=== PATIENT | male | born 1965 | race Caucasian/White ===

== ENCOUNTER 2016-07-20 00:51 | Emergency (ER) | payer BC | END 2016-07-20 01:50 | disposition home or self-care (01) | LOC: D.ER 00:51 | DX: F41.9 Anxiety disorder, unspecified (principal); I10 Essential (primary) hypertension ==

== ENCOUNTER 2016-10-14 15:51 | Emergency (ER) | payer SELFPAY ==
[2016-10-14 16:22] LABS: BASOPHILS 0.1 % (0-2); EOSINOPHILS 0 % (0-7); HEMATOCRIT 39.5 % (42.0-54.0); HEMOGLOBIN 13.5 g/dL (13.5-17.5); IMMATURE GRANULOCYTES 0.2 % (0-5); LYMPHOCYTES 5.1 % (15-50); MCH 30.5 pg (26.0-34.0); MCHC 34.2 g/dL (31.0-37.0); MCV 89.4 fL (80.0-100.0); MEAN PLATELET VOLUME 9.8 fL (7.4-10.4); MONOCYTES 4.4 % (2-11); NEUTROPHILS 90.2 % (40-80); PLATELET COUNT 170 10x3/uL (130-400); RBC 4.42 10x6/uL (4.20-6.10); RDW 13.4 % (11.5-14.5); WBC 15.3 10x3/uL (4.8-10.8)
[2016-10-14 16:41] LABS: ALBUMIN 3.2 g/dL (3.4-5.0); ANION GAP 15.7 mmol/L (8-16); BILIRUBIN - TOTAL 0.23 mg/dL (0.2-1.3); CARBON DIOXIDE 23.2 mmol/L (21.0-32.0); CREATININE - SERUM 1.3 mg/dL (0.6-1.3); POTASSIUM - SERUM 3.9 mmol/L (3.5-5.1); PROTEIN - SERUM 6.4 g/dL (6.4-8.2)
== END 2016-10-14 18:40 | disposition home or self-care (01) ==
LOC: D.ER 15:51
PROVIDERS: Emergency Medicine
DX: F41.9 Anxiety disorder, unspecified (principal); R55 Syncope and collapse; Z91.14 Patient's other noncompliance with medication regimen; I10 Essential (primary) hypertension; F17.200 Nicotine dependence, unspecified, uncomplicated

== ENCOUNTER 2017-05-07 22:28 | Emergency (ER) | payer SELFPAY ==
[2017-05-17 18:02] VITALS: BMI 32.0
== END 2017-05-07 23:51 | disposition home or self-care (01) ==
LOC: D.ER 22:28
DX: K02.9 Dental caries, unspecified (principal); K08.89 Other specified disorders of teeth and supporting structures; I10 Essential (primary) hypertension

== ENCOUNTER 2017-05-15 20:24 | Emergency (ER) | payer SELFPAY ==
[2017-05-15 21:18] LABS: BASOPHILS 0.1 % (0-2); EOSINOPHILS 0 % (0-7); HEMATOCRIT 44.4 % (42.0-54.0); HEMOGLOBIN 15.1 g/dL (13.5-17.5); IMMATURE GRANULOCYTES 0.2 % (0-5); LYMPHOCYTES 11.7 % (15-50); MCH 29.8 pg (26.0-34.0); MCV 87.7 fL (80.0-100.0); MEAN PLATELET VOLUME 9.7 fL (7.4-10.4); MONOCYTES 11.3 % (2-11); NEUTROPHILS 76.7 % (40-80); RBC 5.06 10x6/uL (4.20-6.10); RDW 15.3 % (11.5-14.5); WBC 9.1 10x3/uL (4.8-10.8)
[2017-05-15 21:21] LABS: PLATELET COUNT 114 10x3/uL (130-400)
[2017-05-15 21:35] LABS: ALBUMIN 3.2 g/dL (3.4-5.0); ALKALINE PHOSPHATASE 83 U/L (46-116); ALT (SGPT) 26 U/L (10-68); BILIRUBIN - TOTAL 0.45 mg/dL (0.2-1.3); CALC OSMOLALITY 284 mosm/kg (275-300); CALCIUM 7.8 mg/dL (8.5-10.1); CARBON DIOXIDE 23.9 mmol/L (21.0-32.0); CHLORIDE - SERUM 107 mmol/L (98-107); POTASSIUM - SERUM 3.8 mmol/L (3.5-5.1); PROTEIN - SERUM 6.6 g/dL (6.4-8.2); SODIUM 142 mmol/L (136-145); UREA NITROGEN 18 mg/dL (7-18); eGFR NON AFRICAN AMERICAN 83 mL/min (90-120)
[2017-05-15 21:40] LABS: GLUCOSE 98 mg/dL (74-106)
[2017-05-17 18:02] VITALS: BMI 32.0
== END 2017-05-15 23:11 | disposition home or self-care (01) ==
LOC: D.ER 20:24
PROVIDERS: Physician Assistant Medical
DX: K08.89 Other specified disorders of teeth and supporting structures (principal); I10 Essential (primary) hypertension

== ENCOUNTER 2017-05-17 11:50 | Inpatient (IN) | payer SELFPAY ==
[~2017-05-17] VITALS: Ht 190.5 cm; Wt 115.8 kg
[2017-05-17 14:03] LABS: BASOPHILS 0.3 % (0-2); EOSINOPHILS 0.3 % (0-7); HEMATOCRIT 47.2 % (42.0-54.0); IMMATURE GRANULOCYTES 0.3 % (0-5); LYMPHOCYTES 16.2 % (15-50); MCH 29.7 pg (26.0-34.0); MCHC 33.9 g/dL (31.0-37.0); MCV 87.7 fL (80.0-100.0); MEAN PLATELET VOLUME 9.3 fL (7.4-10.4); NEUTROPHILS 74.9 % (40-80); PLATELET COUNT 97 10x3/uL (130-400); RBC 5.38 10x6/uL (4.20-6.10); RDW 14.9 % (11.5-14.5)
[2017-05-17 14:07] LABS: WBC 6.7 10x3/uL (4.8-10.8)
[2017-05-17 14:25] LABS: PLATELET ESTIMATE DECREASED
[2017-05-17 17:34] LABS: CALC OSMOLALITY 283 mosm/kg (275-300); CALCIUM 8.3 mg/dL (8.5-10.1); CARBON DIOXIDE 27.2 mmol/L (21.0-32.0); CHLORIDE - SERUM 106 mmol/L (98-107); CREATININE - SERUM 0.9 mg/dL (0.6-1.3); GLUCOSE 94 mg/dL (74-106); POTASSIUM - SERUM 3.7 mmol/L (3.5-5.1); SODIUM 142 mmol/L (136-145); UREA NITROGEN 15 mg/dL (7-18); eGFR NON AFRICAN AMERICAN > 90 mL/min (90-120)
[2017-05-17 18:02] VITALS: BP 154/92; Ht 190.5 cm; Wt 115.8 kg
[2017-05-17] MEDS ORDERED: METOPROLOL TART25 MG PO (18:15)
[2017-05-17] MEDS ORDERED: FLOMAX0.4 MG PO (18:15)
[2017-05-17] MEDS ORDERED: CARDIZEM CD120 MG PO (18:41)
[2017-05-17 20:00] VITALS: BP 170/77
[2017-05-18 00:49] VITALS: BP 171/98
[2017-05-18 06:00] LABS: BASOPHILS 0.2 % (0-2); HEMOGLOBIN 15.5 g/dL (13.5-17.5); IMMATURE GRANULOCYTES 0.3 % (0-5); LYMPHOCYTES 21.1 % (15-50); MCH 29.2 pg (26.0-34.0); MCHC 33.7 g/dL (31.0-37.0); MCV 86.8 fL (80.0-100.0); MEAN PLATELET VOLUME 9.2 fL (7.4-10.4); MONOCYTES 9.5 % (2-11); NEUTROPHILS 67.9 % (40-80); PLATELET COUNT 112 10x3/uL (130-400); RDW 14.7 % (11.5-14.5); WBC 5.8 10x3/uL (4.8-10.8)
[2017-05-18 06:23] LABS: CALC OSMOLALITY 283 mosm/kg (275-300); CALCIUM 8.3 mg/dL (8.5-10.1); CHLORIDE - SERUM 106 mmol/L (98-107); GLUCOSE 98 mg/dL (74-106); SODIUM 142 mmol/L (136-145); UREA NITROGEN 15 mg/dL (7-18); eGFR NON AFRICAN AMERICAN 83 mL/min (90-120)
[2017-05-18 06:46] VITALS: BP 155/93
[2017-05-18 08:51] VITALS: BP 167/101
[2017-05-18 12:29] VITALS: BP 166/93
[2017-05-18 17:28] VITALS: BP 150/84
[2017-05-18 20:00] VITALS: BP 153/91
[2017-05-19] VITALS: BP 144/96
[2017-05-19 04:00] VITALS: BP 148/90
[2017-05-19 08:00] VITALS: BP 163/86
[2017-05-19 12:00] VITALS: BP 135/83
[2017-05-19 17:09] VITALS: BP 153/99
[2017-05-19 21:01] VITALS: BP 177/95
[2017-05-20 06:22] VITALS: BP 150/89
[2017-05-20 08:51] VITALS: BP 158/84
[2017-05-20 11:40] VITALS: BP 147/77
[2017-05-20] MEDS ORDERED: LEVAQUIN750 MG PO (13:18)
[2017-05-20] MEDS ORDERED: MEDROL DOSE PACK4 MG PO (13:19)
[2017-05-20] MEDS ORDERED: VENTOLIN HFA18 GM INH (13:20)
== END 2017-05-20 19:15 | disposition home or self-care (01) | DRG 195 ==
LOC: D.ER 11:50 → D.M2 16:57
PROVIDERS: Family Medicine; Physician Assistant
DX: J18.9 Pneumonia, unspecified organism (principal); I10 Essential (primary) hypertension; Z87.891 Personal history of nicotine dependence; R21 Rash and other nonspecific skin eruption

== ENCOUNTER 2017-07-21 08:12 | Emergency (ER) | payer SELFPAY ==
[~2017-07-21] VITALS: Ht 190.5 cm; Wt 122.7 kg
[~2017-07-21 08:12] MED LIST: CARDIZEM CD120 MG PO; FLOMAX0.4 MG PO; LEVAQUIN750 MG PO; MEDROL DOSE PACK4 MG PO; METOPROLOL TART25 MG PO; VENTOLIN HFA18 GM INH
[2017-07-21 08:21] VITALS: Ht 190.5 cm; Wt 122.7 kg
[2017-07-21 08:40] VITALS: BP 166/99
== END 2017-07-21 08:41 | disposition home or self-care (01) ==
LOC: D.ER 08:12
DX: I10 Essential (primary) hypertension (principal)

== ENCOUNTER 2017-09-24 21:44 | Emergency (ER) | payer SELFPAY ==
[~2017-09-24] VITALS: Ht 190.5 cm; Wt 127.3 kg
[2017-09-24 22:22] VITALS: Ht 190.5 cm; Wt 127.3 kg
[2017-09-24] MEDS ORDERED: PRINIVIL20 MG PO (22:25)
[2017-09-25] MEDS ORDERED: HYDROCHLOROTHIA25 MG PO (00:08)
[2017-09-25 02:50] VITALS: BP 145/82
== END 2017-09-25 00:28 | disposition home or self-care (01) ==
LOC: D.ER 21:44
DX: I10 Essential (primary) hypertension (principal); E11.9 Type 2 diabetes mellitus without complications; F17.200 Nicotine dependence, unspecified, uncomplicated

== ENCOUNTER → 2019-11-10 07:53 | Outpatient (CLI) | payer BC ==
[2017-09-24 22:22] VITALS: BMI 35.0
[~2019-11-10 07:53] MED LIST changes: +HYDROCHLOROTHIA25 MG PO; +PRINIVIL20 MG PO
[2019-11-10 08:52] LABS: BASOPHILS 0.3 % (0-2); EOSINOPHILS 1.7 % (0-7); HEMATOCRIT 44.5 % (42.0-54.0); HEMOGLOBIN 15.1 g/dL (13.5-17.5); IMMATURE GRANULOCYTES 0.3 % (0-5); LYMPHOCYTES 17.3 % (15-50); MCH 30.6 pg (26.0-34.0); MCHC 33.9 g/dL (31.0-37.0); MCV 90.3 fL (80.0-100.0); MEAN PLATELET VOLUME 9.4 fL (7.4-10.4); MONOCYTES 7.3 % (2-11); NEUTROPHILS 73.1 % (40-80); PLATELET COUNT 170 10x3/uL (130-400); RBC 4.93 10x6/uL (4.20-6.10); RDW 13.8 % (11.5-14.5); WBC 9.2 10x3/uL (4.8-10.8)
== END | disposition home or self-care (01) ==
LOC: D.LAB 07:53
PROVIDERS: ATTEND Internal Medicine Pulmonary Disease
DX: R06.00 Dyspnea, unspecified (principal); Z11.59 Encounter for screening for other viral diseases

== ENCOUNTER → 2019-11-14 08:20 | Outpatient (CLI) | payer BC ==
[2017-09-24 22:22] VITALS: BMI 35.0
== END | disposition home or self-care (01) ==
LOC: D.RT 10-18 08:00
PROVIDERS: ATTEND Internal Medicine Pulmonary Disease
DX: J45.909 Unspecified asthma, uncomplicated (principal)

== ENCOUNTER 2020-05-15 10:45 | Emergency (ER) | payer BC ==
[~2020-05-15] VITALS: Ht 190.5 cm; Wt 161.8 kg
[2020-05-15 10:52] VITALS: Ht 190.5 cm; Wt 161.8 kg
[2020-05-15] MEDS ORDERED: ADVAIR 250-501 EAC1 INH (10:54)
[2020-05-15] MEDS ORDERED: SINGULAIR10 MG PO (10:55)
[2020-05-15 11:43] LABS: BASOPHILS 0.2 % (0-2); EOSINOPHILS 1.2 % (0-7); HEMATOCRIT 43.7 % (42.0-54.0); HEMOGLOBIN 14.5 g/dL (13.5-17.5); IMMATURE GRANULOCYTES 0.2 % (0-5); LYMPHOCYTE ABS# 1.36 10x3/uL (1.32-3.57); LYMPHOCYTES 13.4 % (15-50); MCH 29.4 pg (26.0-34.0); MCHC 33.2 g/dL (31.0-37.0); MCV 88.5 fL (80.0-100.0); MEAN PLATELET VOLUME 9.5 fL (7.4-10.4); MONOCYTES 8.4 % (2-11); NEUTROPHIL ABS# 7.79 10x3/uL (1.78-5.38); NEUTROPHILS 76.6 % (40-80); PLATELET COUNT 187 10x3/uL (130-400); RBC 4.94 10x6/uL (4.20-6.10); RDW 13.9 % (11.5-14.5); WBC 10.2 10x3/uL (4.8-10.8)
[2020-05-15 11:47] LABS: CALC OSMOLALITY 280 mosm/kg (275-300); CALCIUM 9.4 mg/dL (8.5-10.1); CARBON DIOXIDE 26.7 mmol/L (21.0-32.0); CHLORIDE - SERUM 102 mmol/L (98-107); CREATININE - SERUM 1.4 mg/dL (0.6-1.3); GLUCOSE 112 mg/dL (74-106); POTASSIUM - SERUM 3.6 mmol/L (3.5-5.1); SODIUM 139 mmol/L (136-145); UREA NITROGEN 19 mg/dL (7-18); eGFR NON AFRICAN AMERICAN 56 mL/min (90-120)
[2020-05-15 11:59] LABS: BILIRUBIN NEGATIVE (NEGATIVE); KETONE NEGATIVE (NEGATIVE); NITRITE NEGATIVE (NEGATIVE); UROBILINOGEN NORMAL mg/dL (< 2)
[2020-05-15 12:02] LABS: ALBUMIN 3.5 g/dL (3.4-5.0); ALKALINE PHOSPHATASE 81 U/L (30-120); ALT (SGPT) 37 U/L (10-68); AMYLASE - SERUM 30 U/L (25-115); BILIRUBIN - TOTAL 0.67 mg/dL (0.2-1.3); LIPASE 60 U/L (73-393); PROTEIN - SERUM 6.9 g/dL (6.4-8.2); T4 THYROXIN - FREE 0.93 ng/dL (0.76-1.46); TROPONIN-I < 0.017 ng/mL (0.000-0.060)
[2020-05-15] MEDS ORDERED: ZOFRAN ODT4 MG/UDTAB PO (15:17)
[2020-05-15] MEDS ORDERED: BENTYL 20 MG TA20 MG PO (15:17)
[2020-05-15 15:44] VITALS: BP 120/70
== END 2020-05-15 15:44 | disposition home or self-care (01) ==
LOC: D.ER 10:45
PROVIDERS: Family Medicine
DX: R10.31 Right lower quadrant pain (principal); R11.0 Nausea; I10 Essential (primary) hypertension